=== PATIENT | female | born 1985 | race Caucasian/White ===

== ENCOUNTER 2017-06-09 11:18 | Emergency (ER) | payer OTHER ==
[~2017-06-09] VITALS: Ht 170.2 cm; Wt 54.2 kg
[2017-06-09] MEDS ORDERED: HYDROcodone/APAP 5/325 TABLET PO ONE (12:00)
[2017-06-09] MEDS ORDERED: KETOROLAC 30 MG/1 ML IM ONE (12:00)
[2017-06-09] MEDS ORDERED: LORazepam 1MG TABLET PO PRN (12:00)
[2017-06-09] MEDS ORDERED: KETOROLAC 30 MG/1 ML ONE (12:05)
[2017-06-09] MEDS ORDERED: HYDROcodone/APAP 5/325 TABLET ONE (12:06)
[2017-06-09] MEDS ORDERED: LORazepam 1MG TABLET ONE (12:06)
[2017-06-09 12:09] LABS: BASOPHILS # (AUTO) 0.07 x10^3/uL (0-0.1); BASOPHILS % (AUTO) 1 % (0-1); EOSINOPHILS # (AUTO) 0.21 x10^3/uL (0-0.4); EOSINOPHILS % (AUTO) 4 % (1-7); LYMPHOCYTES % (AUTO) 30 % (22-44); MD NO; MEAN CORPUSCULAR HEMOGLOBIN 31.3 pg (27.0-34.8); MEAN CORPUSCULAR HGB CONC 33.5 g/dL (32.4-35.8); MEAN CORPUSCULAR VOLUME 93.6 fL (80-100); MEAN PLATELET VOLUME 7.1 fL (7.4-10.4); MONOCYTES # (AUTO) 0.24 x10^3/uL (0.2-0.8); MONOCYTES % (AUTO) 5 % (2-9); NEUTROPHILS # (AUTO) 2.97 x10^3/uL (1.8-6.8); NEUTROPHILS % (AUTO) 60 % (42-75); PLATELET COUNT 282 x10^3/uL (130-400); RED BLOOD COUNT 4.67 x10^6/uL (3.82-5.3); RED CELL DISTRIBUTION WIDTH 12.9 % (9.6-15.2)
[2017-06-09 12:15] LABS: HCG UR SG 1.029 (1.003-1.030); MICROSCOPIC INDICATED
[2017-06-09 12:21] LABS: ALBUMIN 3.5 g/dL (3.4-5.0); ANION GAP 7 mmol/L (5-15); CALCIUM 8.4 mg/dL (8.5-10.1); CHLORIDE 109 mmol/L (98-107)
[2017-06-09 12:22] LABS: CREATININE 0.68 mg/dL (0.55-1.02)
[2017-06-09 12:33] LABS: CULTURE INDICATED? NO
[2017-06-09 13:53] VITALS: BP 121/68
== END 2017-06-09 13:55 | disposition home or self-care (01) ==
LOC: ED 13:10
DX: F41.1 Generalized anxiety disorder (principal); N30.21 Other chronic cystitis with hematuria; R10.9 Unspecified abdominal pain
CPT/HCPCS: 36415; 74176; 80048; 81001; 81025; 82040; 85025; 96372; 99285; J1885

== ENCOUNTER 2017-10-18 17:05 | Emergency (ER) | payer OTHER ==
[~2017-10-18] VITALS: Ht 170.2 cm; Wt 57.0 kg
[2017-10-18 17:10] VITALS: BP 132/87
== END 2017-10-18 18:21 | disposition home or self-care (01) ==
LOC: ED 18:15
DX: S00.12XA Contusion of left eyelid and periocular area, initial encounter (principal); S00.11XA Contusion of right eyelid and periocular area, initial encounter; S00.83XA Contusion of other part of head, initial encounter; S00.432A Contusion of left ear, initial encounter; F17.200 Nicotine dependence, unspecified, uncomplicated; Y04.0XXA Assault by unarmed brawl or fight, initial encounter; Y93.89 Activity, other specified; Y92.098 Other place in other non-institutional residence as the place of occurrence of the external cause; Y99.8 Other external cause status
CPT/HCPCS: 70486; 99284

== ENCOUNTER 2018-05-21 11:25 | Emergency (ER) | payer OTHER ==
[~2018-05-21] VITALS: Ht 167.6 cm; Wt 59.8 kg
[2018-05-21 11:26] VITALS: BP 130/85
== END 2018-05-21 12:29 | disposition home or self-care (01) ==
LOC: ED 12:13
DX: J45.31 Mild persistent asthma with (acute) exacerbation (principal); B34.9 Viral infection, unspecified; F17.200 Nicotine dependence, unspecified, uncomplicated
CPT/HCPCS: 71046; 99283

== ENCOUNTER 2020-02-13 17:35 | Emergency (ER) | payer OTHER ==
[~2020-02-13] VITALS: Ht 170.2 cm; Wt 55.3 kg
[~2020-02-13 17:35] MED LIST: IBUP-1902 PO
[2020-02-13 17:39] VITALS: BP 124/86
--- NOTE | 2020-02-13 19:42 | NUR ---
PT REPORTS LEFT SHOULDER PAIN AND NEEDS A WORK NOTE. VS STABLE. NO ACUTE DISTRESS NOTED. WILL CONTINUE TO MONITOR.
--- NOTE | 2020-02-13 20:39 | NUR ---
PT DISCHARGED. PT REFUSED TO STAY FOR DC VITAL SIGNS.
== END 2020-02-13 20:41 | disposition home or self-care (01) ==
LOC: ED 18:05
DX: S43.402A Unspecified sprain of left shoulder joint, initial encounter (principal); F17.200 Nicotine dependence, unspecified, uncomplicated; X58.XXXA Exposure to other specified factors, initial encounter; Y93.89 Activity, other specified; Y92.69 Other specified industrial and construction area as the place of occurrence of the external cause; Y99.0 Civilian activity done for income or pay
CPT/HCPCS: 99283

== ENCOUNTER 2020-02-16 20:14 | Emergency (ER) | payer OTHER ==
[~2020-02-16] VITALS: Ht 170.2 cm; Wt 56.0 kg
[2020-02-16 20:38] VITALS: BP 12/78
== END 2020-02-16 20:42 | disposition home or self-care (01) ==
LOC: ED 20:35
DX: M25.512 Pain in left shoulder (principal)
CPT/HCPCS: 99281

== ENCOUNTER 2020-03-03 21:47 | Emergency (ER) | payer OTHER ==
[~2020-03-03] VITALS: Ht 170.2 cm; Wt 56.4 kg
[2020-03-03] MEDS ORDERED: DIPHENHYDRAMINE 25 MG CAPSULE ONE (22:24)
[2020-03-03] MEDS ORDERED: DIPHENHYDRAMINE 25 MG CAPSULE PO ONE (22:30)
[2020-03-03 22:52] VITALS: BP 130/74
== END 2020-03-03 22:52 | disposition home or self-care (01) ==
LOC: ED 22:48
DX: L20.84 Intrinsic (allergic) eczema (principal); J45.909 Unspecified asthma, uncomplicated; F17.200 Nicotine dependence, unspecified, uncomplicated
CPT/HCPCS: 99283; J7512; Q0163

== ENCOUNTER 2020-04-10 03:00 | Emergency (ER) | payer OTHER ==
[~2020-04-10] VITALS: Ht 170.2 cm; Wt 57.6 kg
[2020-04-10 03:03] VITALS: BP 116/86
[2020-04-10] MEDS ORDERED: hydrOXyzine 50MG TABLET ONE (03:23)
--- NOTE | 2020-04-10 03:39 | NUR ---
Pt medicated per order. Pt dc'd with written and verbal instructions. pt instructed to f/u with derm. Pt states understanding. Pt ambulatory out of ED without difficulty.
== END 2020-04-10 03:42 | disposition home or self-care (01) ==
LOC: ED 03:20
DX: L20.84 Intrinsic (allergic) eczema (principal); J45.909 Unspecified asthma, uncomplicated; F17.210 Nicotine dependence, cigarettes, uncomplicated
CPT/HCPCS: 99283; 99406; J7512; Q0177

== ENCOUNTER 2020-05-18 02:09 | Emergency (ER) | payer OTHER ==
[~2020-05-18] VITALS: Ht 170.2 cm; Wt 59.0 kg
[2020-05-18 02:16] VITALS: BP 130/85
--- NOTE | 2020-05-18 03:00 | NUR ---
PATIENT CLEARED FOR DISCHARGE. PATIENT VERBALIZED UNDERSTANDING OF SELF CARE AND FOLLOW UP CARE AT HOME. PATIENT DENIES ANY ADDITIONAL NEEDS AT THIS TIME.
== END 2020-05-18 03:02 | disposition home or self-care (01) ==
LOC: ED 02:30
DX: L20.84 Intrinsic (allergic) eczema (principal); J45.909 Unspecified asthma, uncomplicated; F17.210 Nicotine dependence, cigarettes, uncomplicated
CPT/HCPCS: 99283; 99406